=== PATIENT | male | born 1985 | race Asian ===

== ENCOUNTER 2024-06-10 13:34 | Inpatient (IN) | payer SELFPAY ==
[2024-06-10] VITALS (8 sets, daily range): BP systolic 148–168; BP diastolic 90–103; PULSE 87–105; RESP 16–18; TEMP 36.1–37; O2SAT 96–100; BMI 23.8; BMI 23.7
--- NOTE | 2024-06-10 13:59 | EDS_ITS ---
HPI History of Present Illness Chief Complaint: ETOH Intox Informant: patient Onset/Context/Timing Onset: Month(s) Context: Gradual Onset Timing: Continuous Current Severity: Mild Maximum Severity: Mild Narrative Narrative: 39-year-old male past medical history of alcohol abuse. Denies any other significant past medical history. He also occasionally does cocaine and marijuana. He presents today after binge drinking last several days. He is requesting detox. He denies other complaints. Prior similar symptoms: Yes Recent Illness/Hospitalization: No PFSH PFSH Medical History Alcohol abuse Home Medications ?Medication ?Instructions ?Recorded ?Last Taken ?Type NK 06/10/24 Unknown History Allergy/AdvReac Type Severity Reaction Status Date / Time No Known Allergies Allergy Verified 06/10/24 13:35 Surgical History (Updated 06/10/24 @ 14:14 by Bridget Rodriguez) Previous back surgery H/O elbow surgery Social History Smoking Status: Unknown if ever smoked ROS ROS ED ROS Narrative Denies. Constitutional Constitutional ED: Denies chills or fever(s) Eyes Eyes: Denies blurry vision ENT ENT ED: Denies ear pain Cardiovascular Cardiovascular: Denies chest pain Respiratory/Chest Respiratory/Chest: Denies cough Gastrointestinal Gastrointestinal: Denies abdominal pain Genitourinary Genitourinary ED: Denies dysuria Musculoskeletal Musculoskeletal: Denies arthralgias Integumentary Denies abscess Neurologic Neurologic: Denies headache(s) Psychiatric Psychiatric: Denies anxiety Endocrine Endocrinology: Denies cold intolerance Hematologic/Lymphatic Hematologic/Lymphatic: Denies easy bleeding Allergic/Immunologic Allergic/Immunologic ED: Denies mouth swelling EXAM Physical Exam Narrative Exam Narrative: Well-appearing 39-year-old male. Vital signs stable afebrile. H EENT exam unremarkable. No signs of trauma. Moist extremities. Neck nontender. Back nontender. Lungs clear to auscultation bilaterally. Heart tachycardic rate of 105 no murmur. Chest wall ribs nontender. Abdomen soft nontender. Moving all 4 extremities. Calves are nontender without edema. He is awake alert. Answer questions following commands. Const Vital Signs: 06/10/24 13:35 06/10/24 14:53 Temperature 97 F L Temperature Source Temporal Pulse Rate 105 H 87 Respiratory Rate 16 16 Blood Pressure 151/103 H 150/98 H Blood Pressure Mean 119 115 Pulse Ox 100 99 Oxygen Delivery Method Room Air Positive well nourished and well developed; Negative for cachectic, contractures or unkempt General Appearance ED: well developed; Negative for unkempt, cachectic, contractures or pallor Nutritional Appearance: Negative for cachectic HEENT Reports moist mucous membranes atraumatic; Negative for trauma or tenderness Eyes PERRL and EOMs intact bilaterally General Eye ED: Negative for pale conjunctiva or scleral icterus Neck no lymphadenopathy, supple and no JVD Thyroid: Negative for tender Lymph Lymphatic: no lymphadenopathy noted Chest Wall inspection of chest normal and palpation of chest normal Resp normal respiratory effort and clear to auscultation bilaterally Effort and Inspection: Negative for retractions Auscultation: Negative for rales, rhonchi or wheezes Cardio regular rhythm, S1 normal heart sound, S2 normal heart sound and no murmurs; Negative for regular rate Rate: tachycardic; Negative for bradycardia GI soft to palpation, non-tender, non-distended and no masses Inspection: Negative for abdominal distention Palpation: Negative for tender or guarding Back/Spine no CVA tenderness General Back: Negative for CVA tenderness Cervical Spine: Negative for cervical spine tenderness Thoracic Spine / Upper Back: Negative for thoracic spinal tenderness Lumbar Spine / Lower Back: Negative for lumbar spinal tenderness Coccyx: Negative for swelling Extremity General Extremety ED: Negative for edema General Extremity: Negative for edema Neuro oriented x3 and CN's II-XII intact bilaterally Sensorium / Orientation: alert, oriented to person, oriented to place and oriented to time; Negative for confused, lethargic or stuporous Speech: speech normal Motor Exam: strength 5/5 throughout Psych mental status grossly normal and thought process normal Appearance: Negative for unkempt Attitude: No belligerent, No agitated and No aggressive Mood & Affect: Negative for depressed, anxious or tearful Skin General Skin Exam: Negative for jaundice or pallor Lesions: no lesions Rashes: no rashes MDM MDM MDM Narrative Medical decision making narrative: 39-year-old male history of alcohol abuse requesting detox. Screening labs being obtained. Hospitalist paged. Repeat exam patient doing well at 3:25 PM. Just awaiting labs and returns to the hospitalist can decide on what medical floor they like to place a person on. Lab Data Attestation: I reviewed the patient's lab results. Lab results narrative: CBC normal. White count of 6. H&H 14 and 42. Platelets 298. Tox screen positive for cocaine. Labs: Laboratory Results - last 24 hr 06/10/24 14:00 WBC 6.3 RBC 5.26 Hgb 14.5 Hct 42.8 MCV 81.4 MCH 27.6 MCHC 33.9 RDW Std Deviation 43.1 RDW Coeff of Akira 14.8 H Plt Count 298 MPV 9.5 Immature Gran % (Auto) 0.500 Neut % (Auto) 52.0 Lymph % (Auto) 34.5 [place] % (Auto) 5.9 Eos % (Auto) 6.8 H Baso % (Auto) 0.3 Absolute Neuts (auto) 3.3 Absolute Lymphs (auto) 2.17 Nucleated RBC % 0 Urine Opiates Screen NEGATIVE Urine Methadone Screen NEGATIVE Ur Barbiturates Screen NEGATIVE Ur Phencyclidine Scrn NEGATIVE Ur Amphetamines Screen NEGATIVE MDMA (Ecstasy) Screen NEGATIVE U Benzodiazepines Scrn NEGATIVE Urine Cocaine Screen POSITIVE H U Cannabinoids Screen NEGATIVE Ur Drug Screen Comment Discharge Plan Triage Chief Complaint: ETOH Intox ED Provider: Shukri Caputo Dx/Rx/DC Orders Prescriptions: No Action NK Primary Care Provider: Care Physician,No Primary Referrals: Care Physician,No Primary [Primary Care Provider] - Print Language: Argentine
[2024-06-10 14:28] LABS: Absolute Lymphocyte Count 2.17 X10^3/uL (0.83-4.51); Absolute Neutrophil Count 3.3 X10^3/uL (2.0-7.7); Basophil# 0.02 X10^3/uL; Basophil% 0.3 % (0-1); Eosinophil# 0.43 X10^3/uL; Eosinophils% 6.8 % (0-5); Hematocrit 42.8 % (40-54); Hemoglobin 14.5 g/dL (13.0-16.5); Lymphocyte # 2.17 X10^3/ul (0.83-4.51); Lymphocyte % 34.5 % (19-41); Mean Corp Hgb Conc 33.9 g/dL (32-36); Mean Corpuscular Hgb 27.6 pg (27.0-32.0); Mean Corpuscular Volume 81.4 fL (80-94); Mean Platelet Vol. 9.5 fl (6.2-12.0); Monocyte# 0.37 X10^3/uL; Monocyte% 5.9 % (0-10); NRBC Flagged by Analyzer 0 % (0-5); Neutrophil # 3.27 X10^3/uL (2.7-7.7); Platelet Count 298 K/mm3 (150-450); RBC Distribution Width CV 14.8 % (11.6-14.6); RBC Distribution Width SD 43.1 fl (35.1-43.9); Red Blood Count 5.26 M/mm3 (4.6-6.2); White Blood Count 6.3 K/mm3 (4.4-11.0)
[2024-06-10 14:48] LABS: Amphetamine Urine VISTA NEGATIVE (<1000 ng/mL); Barbiturate Urine VISTA NEGATIVE (< 200 ng/mL); Benzodiazepine Urine VISTA NEGATIVE (< 200 ng/mL); Cocaine Urine VISTA POSITIVE (< 300 ng/mL); Ecstacy Urine VISTA NEGATIVE (< 500 ng/mL); Methadone Urine VISTA NEGATIVE (< 300 ng/mL); PCP Urine VISTA NEGATIVE (< 25 ng/mL); THC Urine VISTA NEGATIVE (< 50 ng/mL); Vista UDS pH Range 6
--- NOTE | 2024-06-10 15:07 | HP.PCM.HOS_ITS ---
HPI - General General Date of Admission: 06/10/24 Date of Service: 06/10/24 Chief Complaint: Requesting ETOH detox HPI Narrative URIEL ROUSE, is a 39 y/o male history of cocaine, alcohol, marijuana use who presented [facility] ED 06/10/2024 for alcohol detox. Patient drinks between 3-12 beers a day and has been binge drinking for the past 2 days but has not drank yet today. He also reports occasional cocaine and marijuana use. In the ED heart rate 105 with blood pressure 151/103 patient has no other new or acute focal complaints. Hospitalist contacted for admission. Patient seen at bedside with worker from the sober living he supposed to go to today. Patient contacted sob living yesterday and has a spot but was brought in for detox prior to admission to [facility]. Patient reports binging over the past 2 days, not very forthcoming with amount he drank over the past 2 days or his daily amount but it sounds like around 6 beers a day. Patient denied any other substance use to me though it is noted that he told the ED physician that he occasionally uses cocaine UDS was positive for cocaine. He is feeling little bit shaky but had no other focal complaints PFSH Medical History Alcohol abuse Home Medications ?Medication ?Instructions ?Recorded ?Last Taken ?Type NK 06/10/24 Unknown History Allergy/AdvReac Type Severity Reaction Status Date / Time No Known Allergies Allergy Verified 06/10/24 13:35 Surgical History (Updated 06/10/24 @ 14:14 by Bridget Rodriguez) H/O elbow surgery Previous back surgery Social History Smoking Status: Unknown if ever smoked ROS ROS Narrative General: Denies fever/chills HENT: Denies headache, denies stuffy nose, denies sore throat EYES: Denies changes in vision Resp: Denies cough, denies shortness of breath Cardiac: Denies chest pain GI: Denies abdominal pain, denies changes in bowel, denies nausea/vomiting : Denies changes in urination Extremity: Denies swelling MSK: Denies weakness Neuro: Denies any numbness/tingling, is feeling shaky Heme: Denies any bleeding or bruising Skin: Denies rashes Psychiatric: No complaints voiced Vital Signs Vital Signs Vital Signs: 06/10/24 13:35 10/12/24 14:53 Temperature 97 F L Temperature Source Temporal Pulse Rate 105 H 87 Respiratory Rate 16 16 Blood Pressure 151/103 H 150/98 H Blood Pressure Mean 119 115 Pulse Ox 100 99 Oxygen Delivery Method Room Air Physical Exam Narrative General: Alert, oriented, no apparent distress HEENT: Atraumatic, normocephalic Eyes: Anicteric, normal conjunctiva, extraocular movements grossly intact Neck: Supple Respiratory: Clear to auscultation bilaterally, normal respiratory effort Cardiovascular: Regular rate and rhythm GI: Soft, nontender, nondistended Extremities: No edema Musculoskeletal: Moving all extremities Neuro: No overt focal neurological deficits Skin: No rashes appreciated Psych: Reluctant to engage Results Lab / Micro Data 06/10/24 14:00 06/10/24 14:00 Labs: Laboratory Results - last 24 hr 06/10/24 14:00: WBC 6.3, RBC 5.26, Hgb 14.5, Hct 42.8, MCV 81.4, MCH 27.6, MCHC 33.9, RDW Std Deviation 43.1, RDW Coeff of Akira 14.8 H, Plt Count 298, MPV 9.5, Immature Gran % (Auto) 0.500, Neut % (Auto) 52.0, Lymph % (Auto) 34.5, [place] % (Auto) 5.9, Eos % (Auto) 6.8 H, Baso % (Auto) 0.3, Absolute Neuts (auto) 3.3, Absolute Lymphs (auto) 2.17, Nucleated RBC % 0, Urine Opiates Screen NEGATIVE, Urine Methadone Screen NEGATIVE, Ur Barbiturates Screen NEGATIVE, Ur Phencyclidine Scrn NEGATIVE, Ur Amphetamines Screen NEGATIVE, MDMA (Ecstasy) Screen NEGATIVE, U Benzodiazepines Scrn NEGATIVE, Urine Cocaine Screen POSITIVE H, U Cannabinoids Screen NEGATIVE, Ur Drug Screen Comment Assessment & Plan Assessment/Plan (1) Alcohol abuse: PLAN: Plan #Alcohol use disorder - We will begin CIWA every 4 for 24 hours, then every 6 for 24 hours, then every 12 until discharge -Will begin phenobarbital taper -Gabapentin 300 mg every 8 as needed -Will start Bentyl and hydroxyzine as needed as well as loperamide as needed -Trazodone 100 mg p.o. nightly as needed sleep -Begin thiamine and folic acid supplementation -Zofran as needed for nausea -Case management consult to assist with discharge planning -Patient to go to [facility] which is a sober living on discharge, their phone number for pickup is [phone] -Reported last alcohol use was yesterday however patient with EtOH of 154, management as above # Stimulant use disorder?cocaine -UDS +cocaine -Advise cessation #Tobacco use -Advise cessation -Nicotine replacement available if desired #DVT ppx: Low risk, ambulatory Jennifer Field MD Charges/Coding Visit Charges Inpatient E&M: 46445 Init Hosp L1
[2024-06-10 15:58] LABS: ALB/GLOB Ratio 0.8 RATIO (0.9-2.4); AST(SGOT) 65 U/L (15-37); Alanine Aminotransfer ALT/SGPT 47 U/L (16-61); Albumin, Serum 3.6 g/dL (3.2-5.0); Alkaline Phosphatase 185 U/L (45-117); Anion Gap 7 (5-15); BUN 15 mg/dL (7-18); BUN/Creat Ratio 17.1 RATIO (10-20); Calcium,Total 8.7 mg/dL (8.5-10.1); Chloride 101 mmol/L (98-107); Creatinine, Serum 0.88 mg/dL (0.70-1.30); EST Glomerular Filtration Rate 102 mL/min (>60); Est Glom Filt Rate - Afr Amer 123 mL/min (>60); Estimated Creatinine Clearance 106.88 ml/min; Globulin 4.3 g/dL (2.2-4.2); Glucose 138 mg/dL (74-106); Potassium 3.8 mmol/L (3.5-5.1); Protein, Total 7.9 g/dL (6.4-8.2); Sodium Level 137 mmol/L (136-145)
[2024-06-10] MEDS: Ondansetron 8 MG Tablet PO (16:22)
[2024-06-10] MEDS: Phenobarbital 32.4 MG Tablet 64.8 MG PO ×2 (16:22→20:12)
[2024-06-11] VITALS: BP 145/99; PULSE 81; RESP 16; TEMP 36.6; O2SAT 99
[2024-06-11] MEDS: Phenobarbital 32.4 MG Tablet 64.8 MG PO ×6 (02:50→21:23)
[2024-06-11 04:00] VITALS: BP 165/88; PULSE 91; RESP 18; TEMP 36.1; O2SAT 96
[2024-06-11 06:31] LABS: International Normalized Ratio 0.9; Magnesium 2.4 mg/dL (1.6-2.6); Phosphorus 3.3 mg/dL (2.5-4.9); Prothrombin Time (Protime)PT. 12.2 SECONDS (11.7-14.9)
[2024-06-11 08:04] VITALS: BP 141/108; PULSE 78; RESP 16; TEMP 36.1; O2SAT 99
[2024-06-11] MEDS: Thiamine Hydrochloride 100 MG Tablet PO (08:06)
[2024-06-11] MEDS: Folic Acid 1 MG Tablet PO (08:06)
--- NOTE | 2024-06-11 08:33 | PN.HOSP_ITS ---
Subjective Subjective Resting, no issues overnight, CIWA score 1 Objective Data Objective Data Vital Signs: Vital Signs Temp Pulse Resp BP Pulse Ox O2 Del Method 97 F L 78 16 141/108 H 99 Room Air 06/11/24 08:04 06/11/24 08:04 06/11/24 08:04 06/11/24 08:04 06/11/24 08:04 06/11/24 08:10 Oxygen Delivery Method Room Air Weight: 156 lb 8.451 oz Body Mass Index (BMI) 23.7 Intake & Output: Intake and Output for Last 24 Hours 06/10/24 06/11/24 06/12/24 03:59 03:59 03:59 Intake Total 500 / 500 300 / 300 Balance 500 / 500 300 / 300 Lab / Micro Data 06/10/24 14:00 06/10/24 14:00 Labs: Laboratory Results - last 24 hr 06/10/24 14:00: WBC 6.3, RBC 5.26, Hgb 14.5, Hct 42.8, MCV 81.4, MCH 27.6, MCHC 33.9, RDW Std Deviation 43.1, RDW Coeff of Akira 14.8 H, Plt Count 298, MPV 9.5, Immature Gran % (Auto) 0.500, Neut % (Auto) 52.0, Lymph % (Auto) 34.5, [place] % (Auto) 5.9, Eos % (Auto) 6.8 H, Baso % (Auto) 0.3, Absolute Neuts (auto) 3.3, Absolute Lymphs (auto) 2.17, Nucleated RBC % 0, Sodium 137, Potassium 3.8, Chloride 101, Carbon Dioxide 30.0, Anion Gap 7, BUN 15, Creatinine 0.88, Estim Creat Clear Calc 106.88, Est GFR (MDRD) Af Amer 123, Est GFR (MDRD) Non-Af 102, BUN/Creatinine Ratio 17.1, Glucose 138 H, Calcium 8.7, Total Bilirubin 0.50, AST 65 H, ALT 47, Alkaline Phosphatase 185 H, Total Protein 7.9, Albumin 3.6, G lobulin 4.3 H, Albumin/Globulin Ratio 0.8 L, Urine Opiates Screen NEGATIVE, Urine Methadone Screen NEGATIVE, Ur Barbiturates Screen NEGATIVE, Ur Phencyclidine Scrn NEGATIVE, Ur Amphetamines Screen NEGATIVE, MDMA (Ecstasy) Screen NEGATIVE, U Benzodiazepines Scrn NEGATIVE, Urine Cocaine Screen POSITIVE H, U Cannabinoids Screen NEGATIVE, Ur Drug Screen Comment , Ethyl Alcohol 154.0 06/11/24 05:26: PT 12.2, INR 0.9, Phosphorus 3.3, Magnesium 2.4 Physical Exam Narrative General: Alert, Oriented x3, Cooperative, No apparent distress HEENT: Atraumatic, PERRLA, EOMI, Normocephalic Oral: Moist Mucosa Neck: Supple, No JVD Lungs: Clear to auscultation, Normal air movement, No rhonchi, No wheeze, No rales Cardiovascular: Regular rate, Regular Rhythm, Normal S1, Normal S2, No murmurs Abdomen: Soft, Non Tender, Non-Distended, No Hepato-splenomegaly Extremities: No edema, Capillary Refill Less than 3 Seconds Skin: No rashes, No breakdown Musculoskeletal: No Tenderness to Palpation of Joints or Extremities Neurological: No focal neurological deficits, Motor Exam 5/5 strength throughout, Sensory exam intact to light touch and pain Psych/Mental Status: Normal Affect, Appropriate Assessment & Plan Assessment/Plan (1) Alcohol abuse: PLAN: Plan 1. Alcohol abuse requesting detox/cocaine use, tobacco use ? Continue with the alcohol withdrawal protocol ? Discussed cessation of cocaine and tobacco use ? No nicotine patch at this time ? Follow-up with 180 as an outpatient DVT: Ambulation Charges/Coding Visit Charges Inpatient E&M: 86831 Subs Hosp L2
[2024-06-11 12:00] VITALS: BP 179/127; PULSE 100; RESP 18; TEMP 36.6; O2SAT 100
[2024-06-11] MEDS: Gabapentin 300 MG Capsule PO (12:22)
[2024-06-11] MEDS: Acetaminophen 325 MG Tablet 650 MG PO (12:22)
[2024-06-11] MEDS: 0.9% Saline Lock 10 ML Syringe IV (14:01)
[2024-06-11] MEDS: LORazepam 2 MG/ML Syringe 1 MG IV (14:01)
[2024-06-11] MEDS: chlordiazePOXIDE 25 MG Capsule PO ×2 (14:01→21:23)
[2024-06-11 16:00] VITALS: BP 161/106; PULSE 90; RESP 16; TEMP 36.7; O2SAT 100
[2024-06-11 21:00] VITALS: BP 145/111; PULSE 100; RESP 18; TEMP 36.4; O2SAT 100
[2024-06-12] MEDS: traZODone 100 MG Tablet PO (00:29)
[2024-06-12] MEDS: Phenobarbital 32.4 MG Tablet 64.8 MG PO ×6 (00:29→20:27)
[2024-06-12] MEDS: hydrOXYzine PAM 25 MG Capsule 50 MG PO (00:29)
[2024-06-12] MEDS: Gabapentin 300 MG Capsule PO (00:30)
[2024-06-12 01:00] VITALS: BP 148/98; PULSE 98; RESP 18; TEMP 36.7; O2SAT 99
[2024-06-12 05:00] VITALS: BP 132/90; PULSE 84; RESP 18; TEMP 36.9; O2SAT 100
[2024-06-12] MEDS: chlordiazePOXIDE 25 MG Capsule PO ×3 (05:24→20:27)
--- NOTE | 2024-06-12 08:45 | PCM.PN.HOSP ---
Reason for Visit Reason for Visit: Diagnoses Alcohol abuse, uncomplicated (06/10/24) Subjective Subjective Patient is a 39-year-old gentleman with history of polysubstance dependence admitted with acute alcohol withdrawal Objective Data Objective Data Vital Signs: Vital Signs Temp Pulse Resp BP Pulse Ox O2 Del Method 98.5 F 84 18 132/90 H 100 Room Air 06/12/24 05:00 06/12/24 05:00 06/12/24 05:00 06/12/24 05:00 06/12/24 05:00 06/12/24 05:00 Oxygen Delivery Method Room Air Weight: 71 kg Body Mass Index (BMI) 23.7 Intake & Output: Intake and Output for Last 24 Hours 06/10/24 06/11/24 06/12/24 23:59 23:59 23:59 Intake Total 200 / 500 600 / 600 360 / 360 Balance 200 / 500 600 / 600 360 / 360 Lab / Micro Data 06/10/24 14:00 06/10/24 14:00 Physical Exam Narrative GENERAL: cooperative HEENT: Atraumatic; normocephalic EYES; Anicteric, Normal Conjunctiva NECK; supple, normal thyroid, RESPIRATORY: Diminished to auscultation CARDIOVASCULAR: Regular S1 S2, GI: soft, normoactive bowel sounds, : No Renal angle tenderness; EXTREMITIES: No edema, no clubbing, MUSCULOSKELETAL: no muscle wasting NEURO: Awake; no lateralizing signs. SKIN: No Rash PSYCH; Flat affect Assessment & Plan Assessment/Plan (1) Alcohol abuse: PLAN: Plan Patient is a 39-year-old gentleman with history of polysubstance dependence admitted with acute alcohol withdrawal 1. Acute alcohol withdrawal - Patient has been admitted for treatment with phenobarb taper in addition to adjuvant medications including gabapentin, Bentyl, hydroxyzine and clonidine as needed for alcohol withdrawal symptoms. Patient was also placed on thiamine and folic acid. Consultation placed to [facility] counseling services 2. Stimulant use disorder ? Cocaine cessation encouraged 3. Tobacco dependence ? Counseled on cessation, offered nicotine patch for tobacco cravings 4. DVT prophylaxis ? Low risk to encourage early ambulation Time spent in the patient's overall evaluation,decision-making process, review of diagnostic data, adjustment of management, discussion with other providers, nursing nursing and ancillary staff involved in patient's care documentation, 36 Minutes Charges/Coding Visit Charges Inpatient E&M: 85877 Subs Hosp L2
[2024-06-12 09:06] VITALS: BP 133/92; PULSE 84; RESP 16; TEMP 36.4; O2SAT 100
[2024-06-12] MEDS: Thiamine Hydrochloride 100 MG Tablet PO (09:17)
[2024-06-12] MEDS: Folic Acid 1 MG Tablet PO (09:17)
[2024-06-12 12:09] VITALS: BP 123/87; PULSE 80; RESP 18; O2SAT 98
--- NOTE | 2024-06-12 15:29 | CHAPLAIN ---
Type of Pastoral Visit ___ Initial Visit ___ Follow-up Visit ___ On-call Visit ___ General Patient Visit ___ Spiritual Assessment ___ Family Conference ___ Bereavement ___ Rapid Response ___ Code Blue ___ Other (describe below) Pastoral Care Referral From ___ Patient ___ Family ___ Nurse ___ Physician ___ Belt Builder Helper ___ Irrigator Gravity Flow ___ Other (describe below) Sacrament/Intervention ___ Active listening ___ Anointing ___ Islam ___ Bereavement ___ Communion ___ Melissa exploration ___ ___ Life review ___ Prayer ___ Reconciliation ___ Sacrament of Sick ___ Supportive presence ___ Wedding ___ Other (describe below) Pastoral Comments patient was sleeping and so left a calling card
--- NOTE | 2024-06-12 15:39 | CASEMGMT ---
Social Work- SW met with pt to conduct SDOH assessment. Pt was observed to have slow cognitive process, slow responses, and often stared blankly, requiring repeated questions. Pt reports that he worked at [employer] over the summer and is from [place]. Pt does not plan to return to [place], but intends to stay in the areas. Pt reports that he has been a part of [facility] for two days. Pt reports that they will help him with medicaid, housing, etc. Pt states that he is expected to be a part of their program for over three months. SW provided [employer] card, [employer], food resources, [facility], transportation list, and Suzanne Wang information. Pt indicates no additional needs at this time. ANTOLIN remains available to follow. NAUN Mathias
[2024-06-12 16:02] VITALS: BP 124/88; PULSE 86; RESP 16; TEMP 36.8; O2SAT 98
[2024-06-13] MEDS: Phenobarbital 32.4 MG Tablet 64.8 MG PO ×3 (00:36→12:54)
[2024-06-13 00:37] VITALS: BP 114/86; PULSE 84; RESP 16; TEMP 36.7; O2SAT 99
[2024-06-13] MEDS: chlordiazePOXIDE 25 MG Capsule PO (05:28)
[2024-06-13 05:37] VITALS: BP 117/88; PULSE 82; RESP 16; TEMP 37; O2SAT 98
--- NOTE | 2024-06-13 08:10 | PCM.PN.HOSP ---
Reason for Visit Reason for Visit: Diagnoses Alcohol abuse, uncomplicated (06/10/24) Subjective Subjective Patient seen back to his baseline. Plan is for patient to be assessed for possible discharge Objective Data Objective Data Vital Signs: Vital Signs Temp Pulse Resp BP Pulse Ox O2 Del Method 98.6 F 82 16 117/88 H 98 Room Air 06/13/24 05:37 06/13/24 05:37 06/13/24 05:37 06/13/24 05:37 06/13/24 05:37 06/13/24 05:37 Oxygen Delivery Method Room Air Weight: 71 kg Body Mass Index (BMI) 23.7 Intake & Output: Intake and Output for Last 24 Hours 06/11/24 06/12/24 06/13/24 23:59 23:59 23:59 Intake Total 600 / 600 360 / 360 Balance 600 / 600 360 / 360 Lab / Micro Data 06/10/24 14:00 06/10/24 14:00 Social Homelessness:: Sheltered Physical Exam Narrative GENERAL: cooperative HEENT: Atraumatic; normocephalic EYES; Anicteric, Normal Conjunctiva NECK; supple, normal thyroid, RESPIRATORY: Diminished to auscultation CARDIOVASCULAR: Regular S1 S2, GI: soft, normoactive bowel sounds, : No Renal angle tenderness; EXTREMITIES: No edema, no clubbing, MUSCULOSKELETAL: no muscle wasting NEURO: Awake; no lateralizing signs. SKIN: No Rash PSYCH; Flat affect Assessment & Plan Assessment/Plan (1) Alcohol abuse: PLAN: Plan Patient is a 39-year-old gentleman with history of polysubstance dependence admitted with acute alcohol withdrawal 1. Acute alcohol withdrawal - Patient has been admitted for treatment with phenobarb taper in addition to adjuvant medications including gabapentin, Bentyl, hydroxyzine and clonidine as needed for alcohol withdrawal symptoms. Patient was also placed on thiamine and folic acid. Consultation placed to [facility] counseling services ? 06/13/2024 patient stable for discharge 2. Stimulant use disorder ? Cocaine cessation encouraged 3. Tobacco dependence ? Counseled on cessation, offered nicotine patch for tobacco cravings 4. DVT prophylaxis ? Low risk to encourage early ambulation Time spent in the patient's overall evaluation,decision-making process, review of diagnostic data, adjustment of management, discussion with other providers, nursing nursing and ancillary staff involved in patient's care documentation, 36 Minutes
[2024-06-13 10:09] VITALS: BP 124/89; PULSE 98; RESP 16; TEMP 36.6; O2SAT 98
[2024-06-13] MEDS: Folic Acid 1 MG Tablet PO (10:11)
[2024-06-13] MEDS: Thiamine Hydrochloride 100 MG Tablet PO (10:11)
[2024-06-13] MEDS: Gabapentin 300 MG Capsule PO (10:23)
--- NOTE | 2024-06-13 12:05 | PCM.DC.SUM ---
Providers Date of Admission: 06/10/24 Date of Discharge: 06/13/24 Primary Care Physician: No Primary Care Phys Reason For Visit: ETOH DETOX Diagnosis Discharge Diagnosis (1) Alcohol abuse: Status: Acute Code(s): F10.10 - Alcohol abuse, uncomplicated Plan Patient is a 39-year-old gentleman with history of polysubstance dependence admitted with acute alcohol withdrawal 1. Acute alcohol withdrawal - Patient has been admitted for treatment with phenobarb taper in addition to adjuvant medications including gabapentin, Bentyl, hydroxyzine and clonidine as needed for alcohol withdrawal symptoms. Patient was also placed on thiamine and folic acid. Consultation placed to [facility] counseling services ? 06/13/2024 patient stable for discharge 2. Stimulant use disorder ? Cocaine cessation encouraged 3. Tobacco dependence ? Counseled on cessation, offered nicotine patch for tobacco cravings 4. DVT prophylaxis ? Low risk to encourage early ambulation Time spent in the patient's overall evaluation,decision-making process, review of diagnostic data, adjustment of management, discussion with other providers, nursing nursing and ancillary staff involved in patient's care documentation, 36 Minutes Medications at Discharge Home Medications NK 06/10/24 Physical Exam Narrative GENERAL: cooperative HEENT: Atraumatic; normocephalic EYES; Anicteric, Normal Conjunctiva NECK; supple, normal thyroid, RESPIRATORY: Diminished to auscultation CARDIOVASCULAR: Regular S1 S2, GI: soft, normoactive bowel sounds, : No Renal angle tenderness; EXTREMITIES: No edema, no clubbing, MUSCULOSKELETAL: no muscle wasting NEURO: Awake; no lateralizing signs. SKIN: No Rash PSYCH; Flat affect Medical Records Data Homelessness:: Sheltered Weight / BMI Weight Weight: 71 kg Body Mass Index (BMI) 23.7 ABG / Lab / Microbiology Data 06/10/24 14:00 06/10/24 14:00 D/C Instructions Discharge Diet: No restrictions Discharge Activity: Return to Normal Activity Call your doctor if you observe: Fever of 101 or Higher, Shortness of breath, Fainting spells and Chest pain Meaningful Use Info Meaningful Use Meaningful Use Diagnoses (Choose all that apply): None applicable Ischemic Stroke Statin Dosing Therapy Reference: STATIN DOSE THERAPY REFERENCE: * Patients > 75 years receive moderate or high dose statin therapy. * Patients 75 years or YOUNGER should receive HIGH intensity statin dose unless contraindicated. You will be required to document reason for non-treatment if statin daily dose does not meet guidelines. HIGH DOSE STATIN THERAPY DAILY Atorvastatin > than or = to 40 mg Rosuvastatin > than or = to 20 mg Amlodipine + Atorvastatin > than or = to 2.5/40 mg Ezetimibe + Simvastatin 10/80 mg Simvastatin 80mg Discharge Plan Admission Admit Date/Time: 06/10/24 15:08 Attending Provider: Ricci Lo Primary Care Provider: Care Physician,No Primary Consulting Providers: Jennifer Field; Celso Wetzel Discharge Orders/Prescriptions Prescriptions: Continued NK Referrals / Follow Up: Care Physician,No Primary [Primary Care Provider] - Disposition Disposition (needs filled in before D/C Order can be placed): Home, Self Care Charges/Coding Visit Charges Inpatient E&M: 57502 Disch Hosp >30min
--- NOTE | 2024-06-13 12:48 | CHAPLAIN ---
Type of Pastoral Visit _x__ Initial Visit ___ Follow-up Visit ___ On-call Visit ___ General Patient Visit ___ Spiritual Assessment ___ Family Conference ___ Bereavement ___ Rapid Response ___ Code Blue ___ Other (describe below) Pastoral Care Referral From _x__ Patient ___ Family ___ Nurse ___ Physician ___ Manager Trade Marketing ___ Watershed Program Manager ___ Other (describe below) Sacrament/Intervention ___ Active listening ___ Anointing ___ Latter-Day ___ Bereavement ___ Communion ___ Melissa exploration ___ ___ Life review ___ Prayer ___ Reconciliation ___ Sacrament of Sick _x__ Supportive presence ___ Wedding _x__ Other (describe below) Pastoral Comments patient is awake today and is given explanation of the role of the foundry operator and is given offer of presence and support; pt asks some questions as he does not comprehend what a foundry operator is doing; pt says that he is fine; pt is asked about what his plans are for future support and recovery; pt says I want to go back there and I need a job and transportation; pt is affirmed in his decision to get help and to strive for recovery with the help of others; pt again states that he is not in need of anything and that he is fine; visit ended with offer of future support as he desires
== END 2024-06-13 13:15 | disposition home or self-care (01) | DRG 897 ==
LOC: ED 14:48 → MS3 15:40
PROVIDERS: Admitting Provider Internal Medicine; Emergency Provider Emergency Medicine; Visit Provider Internal Medicine
DX: F10.139 Alcohol abuse with withdrawal, unspecified (principal); F14.90 Cocaine use, unspecified, uncomplicated; Y90.6 Blood alcohol level of 120-199 mg/100 ml
CPT/HCPCS: 36415; 80053; 80307; 82077; 83735; 84100; 85025; 85610; 99284; 99406; A4216

== ENCOUNTER 2024-10-10 19:50 | Emergency (ER) | payer MEDICAID, SELFPAY ==
[2024-10-10 19:51] VITALS: BP 146/96; PULSE 112; RESP 17; TEMP 36.6; O2SAT 100; BMI 24.4
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
[2024-10-11] MEDS: Naproxen 500 MG Tablet PO (00:32)
[2024-10-11] MEDS: traMADol 50 MG Tablet PO (00:32)
[2024-10-11 00:37] VITALS: BP 138/87; PULSE 64; RESP 18; O2SAT 99
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
== END 2024-10-11 01:15 | disposition home or self-care (01) ==
PROVIDERS: Emergency Provider Emergency Medicine; Visit Provider Emergency Medicine
DX: S30.0XXA Contusion of lower back and pelvis, initial encounter (principal); S60.222A Contusion of left hand, initial encounter; F17.210 Nicotine dependence, cigarettes, uncomplicated; V19.3XXA Pedal cyclist (driver) (passenger) injured in unspecified nontraffic accident, initial encounter
CPT/HCPCS: 72170; 72220; 73130; 99283